=== PATIENT | male | born 1990 | race Caucasian/White ===

== ENCOUNTER 2019-05-26 21:06 | Emergency (ER) | payer SELFPAY ==
[2019-05-26 21:40] VITALS: BP 155/80
[2019-05-26] MEDS ORDERED: Ondansetron ODT TAB* 4 MG PO ONE (22:18)
--- NOTE | 2019-05-26 22:21 | UC ---
Abdominal Pain Male HPI - HPI Summary HPI Summary: 28 yo male with the onset of crampy abd pain /nausea and diarrhea that start about 12 hours ago left work no diarrhea x 5 hours still with intermittent abd cramps briefly had RUQ pain - History of Current Complaint Chief Complaint: UCGI Stated Complaint: DIARRHEA, NAUSEA Time Seen by Provider: 05/26/19 22:02 Hx Obtained From: Patient Onset/Duration: Gradual Onset, Lasting Hours Timing: Constant Severity Initially: Mild Severity Currently: None Pain Intensity: 5 - at max Pain Scale Used: 0-10 Numeric Location: Diffuse Radiates: No Character: Colicy Aggravating Factor(s): Nothing Alleviating Factor(s): Spontaneous Resolution Associated Signs And Symptoms: Positive: Decreased Appetite, Nausea, Diarrhea. Negative: Vomiting - Allergies/Home Medications Allergies/Adverse Reactions: Allergies Allergy/AdvReac Type Severity Reaction Status Date / Time No Known Allergies Allergy Verified 05/26/19 21:41 Home Medications: Home Medications Ondansetron TAB* [Zofran Tab*] 4 mg PO Q6H PRN #10 tab 05/26/19 [Rx] PMH/Surg Hx/FS Hx/Imm Hx Previously Healthy: Yes - Surgical History Surgical History: None - Family History Known Family History: Positive: Hypertension, Other - GB disease - Social History Alcohol Use: Occasionally Substance Use Type: Excessive Caffeine Substance Use Comment - Amount & Last Used: 4-5 monster drinks and 9 cans Mountain Dew/ day Smoking Status (MU): Heavy Every Day Tobacco Smoker Type: Cigarettes, Smokeless Tobacco Amount Used/How Often: off/on Review of Systems All Other Systems Reviewed And Are Negative: Yes Constitutional: Positive: Negative Skin: Positive: Negative Eyes: Positive: Negative ENT: Positive: Negative Respiratory: Positive: Negative Cardiovascular: Positive: Negative Gastrointestinal: Positive: Abdominal Pain, Diarrhea, Nausea Genitourinary: Positive: Negative Motor: Positive: Negative Neurovascular: Positive: Negative Musculoskeletal: Positive: Negative Neurological/Mental Status: Positive: Negative Psychological: Positive: Negative Physical Exam Triage Information Reviewed: Yes Appearance: Well-Appearing, No Pain Distress, Well-Nourished Vital Signs: Initial Vital Signs Temp 98.3 F 05/26/19 21:29 Pulse 114 05/26/19 21:29 Resp 18 05/26/19 21:29 BP 155/80 05/26/19 21:29 Pulse Ox 97 05/26/19 21:29 Vital Signs Reviewed: Yes Eyes: Positive: Conjunctiva Clear ENT: Positive: Hearing grossly normal. Negative: Nasal congestion, Nasal drainage, Trismus, Muffled voice, Hoarse voice Dental Exam: Normal Neck: Positive: Supple, Nontender, No Lymphadenopathy Respiratory: Positive: Lungs clear, Normal breath sounds, No respiratory distress, No accessory muscle use Cardiovascular: Positive: RRR, No Murmur, Tachycardia Abdomen Description: Positive: Soft. Negative: Nontender - mild tenderness RUQ , CVA Tenderness (R), CVA Tenderness (L), Distended, Guarding Bowel Sounds: Positive: Present Musculoskeletal: Positive: ROM Intact, No Edema Neurological: Positive: Alert Psychological Exam: Normal Skin Exam: Normal Abd Pain Male Course/Dx - Differential Dx/Clinical Impression Provider Diagnosis: Acute gastroenteritis Discharge ED - Sign-Out/Discharge Documenting (check all that apply): Patient Departure All imaging exams completed and their final reports reviewed: No Studies - Discharge Plan Condition: Stable Disposition: HOME Prescriptions: Ondansetron TAB* [Zofran Tab*] 4 mg PO Q6H PRN #10 tab PRN Reason: Nausea Patient Education Materials: Gastroenteritis (ED) Forms: *Gen. Provider Communication, *Work Release Referrals: No Primary Care Phys,NOPCP [Primary Care Provider] - Additional Instructions: I suggest you get seen in the ER tomorrow if not completely better - Billing Disposition and Condition Condition: STABLE Disposition: Home
== END 2019-05-26 22:27 | disposition home or self-care (01) ==
LOC: UCCORT 21:06
DX: K52.9 Noninfective gastroenteritis and colitis, unspecified (principal); F17.210 Nicotine dependence, cigarettes, uncomplicated
CPT/HCPCS: 99202; A9270-GY; G0463